=== PATIENT | male | born 1955 | race Two or more races ===

== ENCOUNTER 2017-04-10 09:56 | Emergency (ER) | payer BC ==
[2017-04-10 10:02] VITALS: BP 141/80; PULSE 96; RESP 16; TEMP 98.2; O2SAT 94
--- NOTE | 2017-04-10 10:33 | EDPHY ---
H & P Time Seen by Provider: 04/10/17 10:16 HPI/ROS: This patient describes a 2 day history of sore throat of moderate intensity worse at night, better during the day and worse with swallowing. He has partial relief from [id number] NSAIDs with no other exacerbating factors. He has associated nasal congestion and also right eye redness, mild itching and matting of the eyelashes in the morning with crusty discharge. ROS: No fevers today. He had low-grade fever yesterday. No other constitutional symptoms HEENT: No facial pain. He still tolerating good p.o. intake despite sore throat. He has no ear pain. Pulmonary: No significant coughing. No shortness of breath. Cardiovascular: No complaints GI: No vomiting or diarrhea Integumentary: No skin rash 7 point ROS is otherwise negative Past Medical/Surgical History: Otherwise healthy Smoking Status: Never smoked Physical Exam: Physical Exam Vital signs are normal. General: No acute distress HEENT: Nose: Clear discharge bilaterally. No sinus tenderness to percussion. Ears: External canals and tympanic membranes are clear with no erythema or abnormal findings bilaterally. Oropharynx: No erythema or exudates. No dysphonia. No drooling or stridor. Eyes: Pupils equal and react to light. Extraocular motions are intact. There is conjunctival injection to the right eye-mild. No active discharge. Neck: Supple with no meningismus. No lymphadenopathy Lungs: Clear to auscultation bilaterally with no rales, rhonchi or wheeze. No respiratory distress. Cardiac: Regular rate and rhythm with no murmur gallop or rub Skin: No rash or pallor. Neuro: Alert with no focal deficits noted. Initial differential diagnosis: Viral pharyngitis, strep pharyngitis, bacterial versus viral conjunctivitis. Constitutional: Initial Vital Signs Temperature (C) 36.8 C 04/10/17 09:58 Heart Rate 96 04/10/17 09:58 Respiratory Rate 16 04/10/17 09:58 Blood Pressure 141/80 H 04/10/17 09:58 O2 Sat (%) 94 04/10/17 09:58 O2 Delivery Mode Room Air Allergies/Adverse Reactions: No Known Allergies Allergy (Verified 04/10/17 10:00) Home Medications: Medication Instructions Recorded Ofloxacin 0.3% [Ocuflox 0.3% (RX)] 2 drops EACHEYE Q1 #1 btl 04/10/17 MDM/Departure - MDM Diagnostics: Rapid strep is negative ED Course/Re-evaluation: I counseled the patient regarding his conjunctivitis and viral pharyngitis. - Depart Disposition: Home, Routine, Self-Care Clinical Impression: Viral pharyngitis Conjunctivitis Qualifiers: Conjunctivitis type: acute Acute conjunctivitis type: bacterial Laterality: right Qualified Code(s): H10.31 - Unspecified acute conjunctivitis, right eye Condition: Good Instructions: Pharyngitis (ED), Conjunctivitis (ED) Additional Instructions: Diagnoses: 1. Viral pharyngitis 2. Bacterial conjunctivitis Plan: Wash hands frequently Ocuflox antibiotic eyedrops Hold off on work for the next 24 hours as this is contagious. Ibuprofen and Tylenol for sore throat Your throat symptoms should improve over the next 3-7 days Return for any significant worsening despite the treatment plan Stand Alone Forms: Work Excuse Prescriptions: Ofloxacin 0.3% [Ocuflox 0.3% (RX)] 2 drops EACHEYE Q1 #1 btl Referrals: BALJIT RANDLE [Primary Care Provider] - As per Instructions
== END 2017-04-10 10:41 | disposition home or self-care (01) ==
LOC: CED 09:56
DX: J02.8 Acute pharyngitis due to other specified organisms (principal); B97.89 Other viral agents as the cause of diseases classified elsewhere; H10.31 Unspecified acute conjunctivitis, right eye
CPT/HCPCS: 87880-PO